=== PATIENT | female | born 1945 | race Caucasian/White ===

== ENCOUNTER 2017-10-03 14:05 | Emergency (ER) | payer MEDICARE, BC ==
[2017-10-03 14:14] VITALS: BP 110/67
[2017-10-03] MEDS ORDERED: Sodium Chloride 0.9% 10 ML Syringe FLUSH PRN (14:20)
[2017-10-03] MEDS ORDERED: HYDROmorphone 0.5 MG/0.5 ML SYRINGE IVPUSH ONE ×2 (14:20→14:57)
--- NOTE | 2017-10-03 15:10 | EDM.PDOC ---
ED HPI GENERAL MEDICAL PROBLEM - General Chief Complaint: Lower Extremity Injury/Pain Stated Complaint: [facility] Time Seen by Provider: 10/03/17 14:13 Source of Information: Reports: Patient, EMS History Limitations: Reports: No Limitations - History of Present Illness INITIAL COMMENTS - FREE TEXT/NARRATIVE: The patient was at [facility]. Her grand son needed to use the rest room. She was washing his had and she stepped back and trip and landed on her right hip. She did not hit her head and she did not hurt her neck. She has severe right hip pain. She was given fentanly by EMS on the way in. She has no chest pain or abdominal pain. She has no headache. She has a history of breast cancer in remission. She has cardiomyopathy from the chemo. Onset: Sudden Duration: Minutes: Location: Reports: Lower Extremity, Right (Hip) Quality: Reports: Sharp Severity: Severe Improves with: Reports: None Worsens with: Reports: None Associated Symptoms: Reports: No Other Symptoms Right Hip Pain Score (Numeric/FACES): 5 - Related Data Allergies Allergy/AdvReac Type Severity Reaction Status Date / Time JET Inhibitors Allergy Cough Verified 10/03/17 14:13 Penicillins Allergy Diarrhea Verified 10/03/17 14:13 Home Meds: Home Meds Aspirin [Wheeler Aspirin] 81 mg PO BEDTIME 07/17/14 [History] Calcium Carbonate/Vitamin D3 [Calcium 600 + Vit D 400] 600 mg PO BID 07/17/14 [ History] Carvedilol [Coreg] 25 mg PO BID 07/17/14 [History] Lansoprazole [Prevacid] 30 mg PO BID 07/17/14 [History] Levothyroxine 112 mcg PO ACBREAKFAST 07/17/14 [History] Multivit-Min/FA/Lutein/Zeaxant [Macular Vitamin Tablet] 2 tab PO DAILY 07/17/14 [History] Olmesartan/Hydrochlorothiazide [Benicar HCT 20-12.5 MG] 1 tab PO DAILY 07/17/14 [History] Pravastatin [Pravachol] 20 mg PO BEDTIME 07/17/14 [History] Spironolactone [Aldactone] 12.5 mg PO ONETIME 07/17/14 [History] Furosemide 10 mg PO DAILY 10/03/17 [History] Past Medical History Cardiovascular History: Reports: Cardiomyopathy, Other (See Below) Other Cardiovascular History: "heart issues from chemotherapy" Gastrointestinal History: Reports: Hemorrhoids Oncologic (Cancer) History: Reports: Breast - Past Surgical History GI Surgical History: Reports: Other (See Below) Other GI Surgeries/Procedures: sigmoidoscopy Social & Family History - Tobacco Use Smoking Status *Q: Never Smoker - Recreational Drug Use Recreational Drug Use: No Review of Systems - Review of Systems Review Of Systems: See Below Constitutional: Reports: No Symptoms Ears: Reports: No Symptoms Nose: Reports: No Symptoms Mouth/Throat: Reports: No Symptoms Respiratory: Reports: No Symptoms Cardiovascular: Reports: No Symptoms GI/Abdominal: Reports: No Symptoms Genitourinary: Reports: No Symptoms Musculoskeletal: Reports: Other (Right hip pain) ED EXAM, GENERAL - Physical Exam Exam: See Below Exam Limited By: No Limitations General Appearance: Alert, No Apparent Distress Ears: Normal External Exam Nose: Normal Inspection Head: Atraumatic, Normocephalic Neck: Normal Inspection Respiratory/Chest: No Respiratory Distress, Lungs Clear, Normal Breath Sounds Cardiovascular: Regular Rate, Rhythm, No Edema, No Murmur GI/Abdominal: Soft, Non-Tender, No Organomegaly, No Mass Extremities: Other (Pain upon palpation to the right hip. Her leg is rotated lateraly. Good sensation and pulses distally.) Course - Vital Signs Last Recorded V/S: Last Vital Signs Temp 97.2 F 10/03/17 14:10 Pulse 70 10/03/17 14:10 Resp 18 10/03/17 14:10 BP 110/67 10/03/17 14:10 Pulse Ox 99 10/03/17 14:10 - Orders/Labs/Meds Orders: Active Orders 24 hr Category Date Time Status Cardiac Monitoring [RC] . DIRECTED Care 10/03/17 14:58 Active EKG Documentation Completion [RC] STAT Care 10/03/17 14:58 Active Peripheral IV Care [RC] . DIRECTED Care 10/03/17 14:20 Active Chest 1V Frontal [CR] Stat Exams 10/03/17 14:58 Ordered Hip Min 2V or 3V w Pelvis Rt [CR] Stat Exams 10/03/17 14:21 Taken CBC WITH AUTO DIFF [HEME] Stat Lab 10/03/17 14:58 Ordered COMPREHENSIVE METABOLIC PN,CMP [CHEM] Stat Lab 10/03/17 14:58 Ordered TROPONIN I [CHEM] Stat Lab 10/03/17 14:58 Ordered Sodium Chloride 0.9% [Saline Flush] Med 10/03/17 14:20 Active 10 ml FLUSH ASDIRECTED PRN Peripheral IV Insertion Adult [OM.PC] Routine Oth 10/03/17 14:20 Ordered Medication Orders Sodium Chloride (Saline Flush) 10 ml FLUSH ASDIRECTED PRN PRN Reason: Keep Vein Open Last Admin: 10/03/17 14:25 Dose: 10 ml Meds: Medications Generic Name Dose Route Start Last Admin Trade Name Freq PRN Reason Stop Dose Admin Sodium Chloride 10 ml 10/03/17 14:20 10/03/17 14:25 Saline Flush FLUSH 10 ml ASDIRECTED PRN Administration Keep Vein Open Discontinued Medications Generic Name Dose Route Start Last Admin Trade Name Freq PRN Reason Stop Dose Admin Hydromorphone HCl 0.5 mg 10/03/17 14:20 10/03/17 14:24 Dilaudid IVPUSH 10/03/17 14:21 0.5 mg ONETIME ONE Administration Hydromorphone HCl 0.5 mg 10/03/17 14:57 Dilaudid IVPUSH 10/03/17 14:58 ONETIME ONE - Re-Assessments/Exams Free Text/Narrative Re-Assessment/Exam: 10/03/17 15:11 I ordered more dilaudid 0.5mg IV for her pain. The x-ray does show an intertrochanteric fracture. We do not have any orthopedic coverage today. I called [facility] in [place] and talked to the orthopedic surgeon academic interventionist Dr Fajardo and he agreed to the transfer. I will give her more dilaudid for pain. I have ordered labs, CXR and EKG. Departure - Departure Time of Disposition: 15:15 Disposition: DC/Tfer to Acute Hospital 02 Condition: Fair Clinical Impression: Fall Qualifiers: Encounter type: initial encounter Qualified Code(s): W19.XXXA - Unspecified fall, initial encounter Closed right hip fracture Qualifiers: Encounter type: initial encounter Qualified Code(s): S72.001A - Fracture of unspecified part of neck of right femur, initial encounter for closed fracture - Discharge Information Referrals: Amber Amado MD [Primary Care Provider] - - My Orders Last 24 Hours: My Active Orders 10/03/17 14:20 Peripheral IV Care [RC] . DIRECTED Sodium Chloride 0.9% [Saline Flush] 10 ml FLUSH ASDIRECTED PRN Peripheral IV Insertion Adult [OM.PC] Routine 10/03/17 14:21 Hip Min 2V or 3V w Pelvis Rt [CR] Stat 10/03/17 14:58 Cardiac Monitoring [RC] . DIRECTED EKG Documentation Completion [RC] STAT Chest 1V Frontal [CR] Stat CBC WITH AUTO DIFF [HEME] Stat COMPREHENSIVE METABOLIC PN,CMP [CHEM] Stat TROPONIN I [CHEM] Stat - Assessment/Plan Last 24 Hours: My Active Orders 10/03/17 14:20 Peripheral IV Care [RC] . DIRECTED Sodium Chloride 0.9% [Saline Flush] 10 ml FLUSH ASDIRECTED PRN Peripheral IV Insertion Adult [OM.PC] Routine 10/03/17 14:21 Hip Min 2V or 3V w Pelvis Rt [CR] Stat 10/03/17 14:58 Cardiac Monitoring [RC] . DIRECTED EKG Documentation Completion [RC] STAT Chest 1V Frontal [CR] Stat CBC WITH AUTO DIFF [HEME] Stat COMPREHENSIVE METABOLIC PN,CMP [CHEM] Stat TROPONIN I [CHEM] Stat
[2017-10-03] MEDS ORDERED: fentaNYL 100 MCG/2 ML SDV IVPUSH ONE (15:42)
--- NOTE | 2017-10-06 08:36 | CR ---
Pelvis and right hip: AP view of the pelvis was obtained as well as AP and lateral views of the right hip. Comparison: No previous study. Comminuted intertrochanteric fracture is seen within the right hip with mild varus angulation and mild displacement of fracture fragments. No additional fracture or other bony abnormality is seen. Impression: 1. Intertrochanteric fracture as noted above (right hip). Diagnostic code #3
--- NOTE | 2017-10-06 08:36 | CR ---
Chest: Portable view of the chest was obtained. Comparison: Prior chest x-ray of 07/17/14. Heart is enlarged. Tortuous thoracic aorta is seen. Lungs are clear with no acute parenchymal densities. Bony structures are grossly intact. Impression: 1. Stable cardiomegaly. Nothing acute is seen. Diagnostic code #2
== END 2017-10-03 16:15 ==
LOC: JD.ED 14:05
DX: S72.001A Fracture of unspecified part of neck of right femur, initial encounter for closed fracture (principal); Z88.0 Allergy status to penicillin; Z79.899 Other long term (current) drug therapy; W19.XXXA Unspecified fall, initial encounter
CPT/HCPCS: 36415; 51701; 71045; 73502; 80053; 84484; 85025; 96374; 96375; 96376; 99285; J1170; J3010; J7050; 99284

== ENCOUNTER 2019-07-01 09:40 | Day surgery (SDC) | payer MEDICARE, BC ==
[~2019-07-01 09:40] MED LIST: Cefuroxime 10 MG/ML SYRINGE EYELF SCH; Lidocaine 1% PF 2 ML SDV INJECT SCH; Pilocarpine 4% Ophth Soln 15 ML Bot EYELF SCH
--- NOTE | 2019-07-01 10:41 | PCM.PREANE ---
Preanesthetic Assessment - Procedure Proposed Procedure: cataract - Anesthesia/Transfusion/Family Hx Anesthesia History: Prior Anesthesia Reaction Type of Anesthesia Reaction: Other (see below) (takes a while to come out) Transfusion History: Prior Transfusion Without Reaction - Review of Systems General: No Symptoms Pulmonary: No Symptoms Cardiovascular: No Symptoms Gastrointestinal: No Symptoms Neurological: No Symptoms Other: Reports: Easy Bruising, Thyroid Problems, Sinus Problem - Physical Assessment NPO Status Date: 06/30/19 NPO Status Time: 18:00 Vital Signs: 107/59 61 95% 16 97.9 Height: 5 ft 6 in Weight: 90.718 kg ASA Class: 2 Mental Status: Alert & Oriented x3 Airway Class: Mallampati = 1 Dentition: Reports: Normal Dentition Thyro-Mental Finger Breadths: 3 Mouth Opening Finger Breadths: 3 ROM/Head Extension: Full Lungs: Clear to Auscultation, Normal Respiratory Effort Cardiovascular: Regular Rate, Regular Rhythm, No Murmurs - Allergies Allergies/Adverse Reactions: Allergies Allergy/AdvReac Type Severity Reaction Status Date / Time JET Inhibitors Allergy Cough Verified 10/03/17 14:13 Penicillins Allergy Diarrhea Verified 10/03/17 14:13 - Blood Blood Available: No - Anesthesia Plan Beta Valencia: Carteolol Med Last Dose Date: 07/01/19 Med Last Dose Time: 07:30 - Acknowledgements Anesthesia Type Planned: MAC Pt an Appropriate Candidate for the Planned Anesthesia: Yes Alternatives and Risks of Anesthesia Discussed w Pt/Guardian: Yes Pt/Guardian Understands and Agrees with Anesthesia Plan: Yes PreAnesthesia Questionnaire Cardiovascular History: Reports: Cardiomyopathy, High Cholesterol, Hypertension , Other (See Below) Other Cardiovascular History: "heart issues from chemotherapy" Respiratory History: Reports: Sleep Apnea, Other (See Below) (cpap) Gastrointestinal History: Reports: Hemorrhoids Musculoskeletal History: Reports: Arthritis Endocrine/Metabolic History: Reports: Hypothyroidism Oncologic (Cancer) History: Reports: Breast - Past Surgical History GI Surgical History: Reports: Other (See Below) Other GI Surgeries/Procedures: sigmoidoscopy - SUBSTANCE USE Tobacco Use Within Last Twelve Months: No Second Hand Smoke Exposure: No Recreational Drug Use History: No - HOME MEDS Home Medications: Home Meds Acetaminophen [Tylenol Arthritis] 1,300 mg PO BEDTIME PRN 06/30/19 [History] B2/Vits A,C,E/Lut/Zeaxanth/Min [Icaps] 1 each PO DAILY 06/30/19 [History] Calcium Citrate/Vitamin D3 [Citracal + D Maximum Caplet] 1 tab PO DAILY [History] Cannabidiol (Cbd) Extract [CBD Oil] 1 dose PO DAILY 06/30/19 [History] Carboxymethylcellulose Sodium [Artificial Tears] 15 ml OP Q4H PRN 06/30/19 [ History] Cetirizine HCl [Zyrtec] 10 mg PO DAILY PRN 06/30/19 [History] Cholecalciferol (Vitamin D3) [Vitamin D3] 400 unit PO DAILY 06/30/19 [History] Cyanocobalamin (Vitamin B-12) [Vitamin B-12] 1,000 mcg PO DAILY 06/30/19 [ History] Fluticasone Propionate [Flonase] 1 dose NASBOTH BID PRN 06/30/19 [History] Furosemide [Lasix] 20 mg PO DAILY 06/30/19 [History] Lansoprazole [Prevacid] 30 mg PO DAILY 06/30/19 [History] Levothyroxine Sodium [Levoxyl] 112 mcg PO DAILY 06/30/19 [History] Olmesartan Medoxomil 5 mg PO DAILY 06/30/19 [History] Pravastatin Sodium 20 mg PO BEDTIME 06/30/19 [History] Tamsulosin [Tamsulosin 24 Hr] 0.4 mg PO DAILY 06/30/19 [History] Vitamin B Complex 1 each PO DAILY 06/30/19 [History] carvediloL [Coreg] 6.25 mg PO BID 06/30/19 [History] - CURRENT (IN HOUSE) MEDS Current Meds: Current Medications Brimonidine Tartrate (Alphagan 0.2% Ophth Soln) 0 ml EYELF ASDIRECTED ELIZABETH Stop: 07/01/19 23:00 Cefuroxime Sodium (Zinacef) 0 mg EYELF ASDIRECTED ELIZABETH Stop: 07/01/19 23:00 Lidocaine HCl (Xylocaine-Mpf 1%) 0 ml INJECT ASDIRECTED ELIZABETH Stop: 07/01/19 23:00 Phenylephrine HCl (Nickolas-Synephrine 2.5% Ophth Soln) 0 ml EYELF ASDIRECTED ELIZABETH Stop: 07/01/19 23:00 Pilocarpine HCl (Pilocar 4% Ophth Soln) 0 ml EYELF ASDIRECTED ELIZABETH Stop: 07/01/19 23:00 Polymyxin/Trimethoprim Sulfate (Polytrim Ophth Soln) 0 ml EYELF ASDIRECTED ELIZABETH Stop: 07/01/19 23:00 Tetracaine HCl (Tetracaine 0.5% Steri-Unit Melinda) 0 ml EYELF ASDIRECTED ELIZABETH Stop: 07/01/19 23:00 Tropicamide (Mydriacyl 1% Ophth Soln) 0 ml EYELF ASDIRECTED ELIZABETH Stop: 07/01/19 23:00
[2019-07-01] MEDS: Polymyxin B/Trimethoprim 10 ML Bottle EYELF SCH ×3 (10:45→12:26)
[2019-07-01] MEDS: Brimonidine 0.2% Ophth Soln 5 ML Bottle EYELF SCH ×3 (10:50→12:26)
[2019-07-01] MEDS: Phenylephrine 2.5% Ophth Soln 2 ML Bot EYELF SCH ×5 (10:56→12:06)
[2019-07-01] MEDS ORDERED: Lidocaine 1%/Sod Bicarbonate in NS 8.4% 1 ML Syringe IDERM PRN (10:58)
[2019-07-01] MEDS ORDERED: Sodium Chloride 0.9% 10 ML Syringe FLUSH PRN (10:58)
[2019-07-01] MEDS ORDERED: Lactated Ringers 1,000 ML IV SCH (11:00)
[2019-07-01] MEDS: Tropicamide 1% Ophth Soln 15 ML Bottle EYELF SCH ×4 (11:02→11:46)
[2019-07-01] MEDS: Tetracaine HCl/PF 0.5% 4 ML Bottle EYELF SCH ×2 (11:57→12:13)
[2019-07-01] MEDS ORDERED: Midazolam 1 MG/ML 2 ML SDV ONE (12:07)
[2019-07-01] MEDS ORDERED: Propofol 200 MG/20 ML SDV ONE (12:08)
[2019-07-01 12:57] VITALS: BP 120/65; PULSE 67
--- NOTE | 2019-07-01 13:36 | PCM48HPAN ---
Post Anesthesia Note - EVALUATION WITHIN 48HRS OF ANESTHETIC Vital Signs in Normal Range: Yes Patient Participated in Evaluation: Yes Respiratory Function Stable: Yes Airway Patent: Yes Cardiovascular Function Stable: Yes Hydration Status Stable: Yes Pain Control Satisfactory: Yes Nausea and Vomiting Control Satisfactory: Yes Mental Status Recovered: Yes Vital Signs: Last Vital Signs Temp 36.8 C 07/01/19 12:35 Pulse 67 07/01/19 12:35 Resp 16 07/01/19 12:35 BP 120/65 07/01/19 12:35 Pulse Ox 95 07/01/19 12:35
== END 2019-07-01 12:53 | disposition home or self-care (01) ==
LOC: JD.SDS 09:40
PROVIDERS: ATTEND Ophthalmology
DX: H25.813 Combined forms of age-related cataract, bilateral (principal); H35.363 Drusen (degenerative) of macula, bilateral; H35.3131 Nonexudative age-related macular degeneration, bilateral, early dry stage; H43.813 Vitreous degeneration, bilateral; H35.373 Puckering of macula, bilateral; H16.103 Unspecified superficial keratitis, bilateral; H16.223 Keratoconjunctivitis sicca, not specified as Sjogren's, bilateral; H02.834 Dermatochalasis of left upper eyelid; H02.831 Dermatochalasis of right upper eyelid; E78.00 Pure hypercholesterolemia, unspecified; I10 Essential (primary) hypertension; I42.9 Cardiomyopathy, unspecified; E03.9 Hypothyroidism, unspecified; G47.30 Sleep apnea, unspecified; M19.90 Unspecified osteoarthritis, unspecified site; Z99.89 Dependence on other enabling machines and devices; Z79.82 Long term (current) use of aspirin; Z79.899 Other long term (current) drug therapy; Z88.0 Allergy status to penicillin; Z88.8 Allergy status to other drugs, medicaments and biological substances; Z91.09 Other allergy status, other than to drugs and biological substances
CPT/HCPCS: 66984; J0697; J2001; J2250; J2704; J7120; C1780

== ENCOUNTER 2019-07-29 08:28 | Day surgery (SDC) | payer MEDICARE, BC ==
[2019-07-29] MEDS: Polymyxin B/Trimethoprim 10 ML Bottle EYERT SCH ×4 (09:10→11:15)
[2019-07-29] MEDS: Brimonidine 0.2% Ophth Soln 5 ML Bottle EYERT SCH ×4 (09:15→11:15)
[2019-07-29] MEDS: Phenylephrine 2.5% Ophth Soln 2 ML Bot EYERT SCH ×6 (09:21→10:39)
[2019-07-29] MEDS: Tropicamide 1% Ophth Soln 15 ML Bottle EYERT SCH ×4 (09:25→10:19)
--- NOTE | 2019-07-29 09:30 | PCM.PREANE ---
Preanesthetic Assessment - Procedure Proposed Procedure: cataract right - Anesthesia/Transfusion/Family Hx Anesthesia History: Prior Anesthesia Reaction Family History of Anesthesia Reaction: No Transfusion History: Prior Transfusion Without Reaction - Review of Systems General: No Symptoms Pulmonary: No Symptoms Cardiovascular: Dyspnea on Exertion Gastrointestinal: No Symptoms Neurological: No Symptoms Other: Reports: Thyroid Problems, Sinus Problem, Throat Pain (scratchy) - Physical Assessment NPO Status Date: 07/28/19 NPO Status Time: 18:00 Vital Signs: Last Vital Signs Temp 97.1 F 07/29/19 09:00 Pulse 71 07/29/19 09:00 Resp 16 07/29/19 09:00 BP 115/58 L 07/29/19 09:00 Pulse Ox 97 07/29/19 09:00 Height: 5 ft 6 in Weight: 90.718 kg ASA Class: 2 Mental Status: Alert & Oriented x3 Airway Class: Mallampati = 1 Dentition: Reports: Normal Dentition Thyro-Mental Finger Breadths: 3 Mouth Opening Finger Breadths: 3 ROM/Head Extension: Full Lungs: Clear to Auscultation, Normal Respiratory Effort Cardiovascular: Regular Rate, Regular Rhythm - Allergies Allergies/Adverse Reactions: Allergies Allergy/AdvReac Type Severity Reaction Status Date / Time JET Inhibitors AdvReac Cough Verified 07/28/19 12:48 Penicillins AdvReac Diarrhea Verified 07/28/19 12:48 - Blood Blood Available: No - Anesthesia Plan Beta Valencia: Carvedilol Med Last Dose Date: 07/29/19 Med Last Dose Time: 07:00 - Acknowledgements Anesthesia Type Planned: MAC Pt an Appropriate Candidate for the Planned Anesthesia: Yes Alternatives and Risks of Anesthesia Discussed w Pt/Guardian: Yes Pt/Guardian Understands and Agrees with Anesthesia Plan: Yes PreAnesthesia Questionnaire Cardiovascular History: Reports: Cardiomyopathy, High Cholesterol, Hypertension , Other (See Below) Other Cardiovascular History: "heart issues from chemotherapy" Respiratory History: Reports: Sleep Apnea, Other (See Below) (cpap) Gastrointestinal History: Reports: Hemorrhoids Musculoskeletal History: Reports: Arthritis Endocrine/Metabolic History: Reports: Hypothyroidism Oncologic (Cancer) History: Reports: Breast - Past Surgical History HEENT Surgical History: Reports: Cataract Surgery, Tonsillectomy GI Surgical History: Reports: Colonoscopy, EGD, Other (See Below) Other GI Surgeries/Procedures: sigmoidoscopy Female Surgical History: Reports: Breast Biopsy (cancer) Musculoskeletal Surgical History: Reports: Hip Replacement - SUBSTANCE USE Smoking Status *Q: Never Smoker Tobacco Use Within Last Twelve Months: No Second Hand Smoke Exposure: No Days Per Week of Alcohol Use: 1 Recreational Drug Use History: No - HOME MEDS Home Medications: Home Meds Acetaminophen [Tylenol Arthritis] 1,300 mg PO BEDTIME PRN 06/30/19 [History] B2/Vits A,C,E/Lut/Zeaxanth/Min [Icaps] 1 each PO DAILY 06/30/19 [History] Calcium Citrate/Vitamin D3 [Citracal + D Maximum Caplet] 1 tab PO DAILY [History] Cannabidiol (Cbd) Extract [CBD Oil] 1 dose PO DAILY 06/30/19 [History] Carboxymethylcellulose Sodium [Artificial Tears] 15 ml OP Q4H PRN 06/30/19 [ History] Cetirizine HCl [Zyrtec] 10 mg PO DAILY PRN 06/30/19 [History] Cholecalciferol (Vitamin D3) [Vitamin D3] 400 unit PO DAILY 06/30/19 [History] Cyanocobalamin (Vitamin B-12) [Vitamin B-12] 1,000 mcg PO DAILY 06/30/19 [ History] Fluticasone Propionate [Flonase] 1 dose NASBOTH BID PRN 06/30/19 [History] Furosemide [Lasix] 20 mg PO DAILY 06/30/19 [History] Lansoprazole [Prevacid] 30 mg PO DAILY 06/30/19 [History] Levothyroxine Sodium [Levoxyl] 112 mcg PO DAILY 06/30/19 [History] Olmesartan Medoxomil 5 mg PO DAILY 06/30/19 [History] Pravastatin Sodium 20 mg PO BEDTIME 06/30/19 [History] Tamsulosin [Tamsulosin 24 Hr] 0.4 mg PO DAILY 06/30/19 [History] Vitamin B Complex 1 each PO DAILY 06/30/19 [History] carvediloL [Coreg] 6.25 mg PO BID 06/30/19 [History] - CURRENT (IN HOUSE) MEDS Current Meds: Current Medications Brimonidine Tartrate (Alphagan 0.2% Ophth Soln) 0 ml EYERT ASDIRECTED ELIZABETH Stop: 07/29/19 23:00 Last Admin: 07/29/19 09:15 Dose: 1 drop Cefuroxime Sodium (Zinacef) 0 mg EYERT ASDIRECTED ELIZABETH Stop: 07/29/19 23:00 Lidocaine HCl (Xylocaine-Mpf 1%) 0 ml INJECT ASDIRECTED ELIZABETH Stop: 07/29/19 23:00 Phenylephrine HCl (Nickolas-Synephrine 2.5% Ophth Soln) 0 ml EYERT ASDIRECTED ELIZABETH Stop: 07/29/19 23:00 Last Admin: 07/29/19 09:21 Dose: 1 drop Pilocarpine HCl (Pilocar 4% Ophth Soln) 0 ml EYERT ASDIRECTED ELIZABETH Stop: 07/29/19 23:00 Polymyxin/Trimethoprim Sulfate (Polytrim Ophth Soln) 0 ml EYERT ASDIRECTED ELIZABETH Stop: 07/29/19 23:00 Last Admin: 07/29/19 09:10 Dose: 1 drop Tetracaine HCl (Tetracaine 0.5% Steri-Unit Melinda) 0 ml EYEBOTH ASDIRECTED ELIZABETH Stop: 07/29/19 23:00 Tropicamide (Mydriacyl 1% Ophth Soln) 0 ml EYERT ASDIRECTED ELIZABETH Stop: 07/29/19 23:00
[2019-07-29] MEDS ORDERED: Lidocaine 1%/Sod Bicarbonate in NS 8.4% 1 ML Syringe IDERM ONE (09:50)
[2019-07-29] MEDS ORDERED: Lactated Ringers 1,000 ML IV SCH (10:00)
[2019-07-29] MEDS: Tetracaine HCl/PF 0.5% 4 ML Bottle EYEBOTH SCH ×5 (10:28→10:51)
[2019-07-29] MEDS: Lidocaine 1% PF 2 ML SDV INJECT SCH ×2 (10:28→10:51)
[2019-07-29] MEDS: Cefuroxime 10 MG/ML SYRINGE EYERT SCH ×2 (10:28→11:14)
[2019-07-29] MEDS: Pilocarpine 4% Ophth Soln 15 ML Bot EYERT SCH ×2 (10:29→11:15)
[2019-07-29] MEDS ORDERED: Propofol 200 MG/20 ML SDV ONE (10:33)
[2019-07-29] MEDS ORDERED: Midazolam 1 MG/ML 2 ML SDV ONE ×2 (10:33→10:34)
--- NOTE | 2019-07-29 11:26 | PCM48HPAN ---
Post Anesthesia Note - EVALUATION WITHIN 48HRS OF ANESTHETIC Vital Signs in Normal Range: Yes Patient Participated in Evaluation: Yes Respiratory Function Stable: Yes Airway Patent: Yes Cardiovascular Function Stable: Yes Hydration Status Stable: Yes Pain Control Satisfactory: Yes Nausea and Vomiting Control Satisfactory: Yes Mental Status Recovered: Yes Vital Signs: Last Vital Signs Temp 36.2 C 07/29/19 09:00 Pulse 71 07/29/19 09:00 Resp 16 07/29/19 09:00 BP 115/58 L 07/29/19 09:00 Pulse Ox 97 07/29/19 09:00
[2019-07-29 13:23] VITALS: BP 122/59; PULSE 68
== END 2019-07-29 12:00 | disposition home or self-care (01) ==
LOC: JD.SDS 08:28
PROVIDERS: ATTEND Ophthalmology
DX: H25.811 Combined forms of age-related cataract, right eye (principal); H02.834 Dermatochalasis of left upper eyelid; H02.831 Dermatochalasis of right upper eyelid; H43.813 Vitreous degeneration, bilateral; H35.363 Drusen (degenerative) of macula, bilateral; H35.3131 Nonexudative age-related macular degeneration, bilateral, early dry stage; E78.00 Pure hypercholesterolemia, unspecified; E03.9 Hypothyroidism, unspecified; I10 Essential (primary) hypertension; Z98.890 Other specified postprocedural states; Z98.42 Cataract extraction status, left eye; Z96.1 Presence of intraocular lens; Z79.899 Other long term (current) drug therapy; Z79.82 Long term (current) use of aspirin; Z88.0 Allergy status to penicillin; Z88.8 Allergy status to other drugs, medicaments and biological substances
CPT/HCPCS: 66984; C1780; J0697; J2001; J2250; J2704; J7120

== ENCOUNTER → 2020-04-18 | Day surgery (SDC) | payer MEDICARE, BC ==
[~2020-04-18] MED LIST changes: +Brimonidine 0.2% Ophth Soln 5 ML Bottle EYEBOTH SCH; -Cefuroxime 10 MG/ML SYRINGE EYELF SCH; -Lidocaine 1% PF 2 ML SDV INJECT SCH; +Phenylephrine 2.5% Ophth Soln 2 ML Bot EYEBOTH SCH; -Pilocarpine 4% Ophth Soln 15 ML Bot EYELF SCH; +Tropicamide 1% Ophth Soln 15 ML Bottle EYEBOTH SCH
== END ==
LOC: JD.SDS 10:29
PROVIDERS: ATTEND Ophthalmology
DX: H26.493 Other secondary cataract, bilateral (principal); H35.363 Drusen (degenerative) of macula, bilateral; H35.3131 Nonexudative age-related macular degeneration, bilateral, early dry stage; H16.103 Unspecified superficial keratitis, bilateral; H16.223 Keratoconjunctivitis sicca, not specified as Sjogren's, bilateral; H02.834 Dermatochalasis of left upper eyelid; H02.831 Dermatochalasis of right upper eyelid; H43.813 Vitreous degeneration, bilateral; E78.00 Pure hypercholesterolemia, unspecified; I10 Essential (primary) hypertension; I42.9 Cardiomyopathy, unspecified; Z98.890 Other specified postprocedural states; Z79.899 Other long term (current) drug therapy; Z88.8 Allergy status to other drugs, medicaments and biological substances; Z88.0 Allergy status to penicillin; Z96.1 Presence of intraocular lens